=== PATIENT | male | born 1980 | race Caucasian/White ===

== ENCOUNTER 2017-06-11 17:45 | Inpatient (IN) | payer OTHER ==
[2017-06-11 17:59] VITALS: BMI 27.4
[2017-06-11] MEDS ORDERED: LIDOCAINE HCL 2% (20ML MULTI-DOSE VIAL) NR ONE (18:54)
[2017-06-11] MEDS ORDERED: LORazepam 0.5 MG TABLET ONE (18:55)
[2017-06-11] MEDS ORDERED: LORazepam 1 MG TABLET PO ONE (19:11)
[2017-06-11] MEDS ORDERED: PIPERACILLIN/TAZOB 3.375 GM/50 ML PRE-DOCKED IV ONE (19:27)
[2017-06-11] MEDS ORDERED: VANCOMYCIN 1 GRAM (PRE-DOCKED) 1,000 MG/250 ML BAG IVPB ONE (19:27)
--- NOTE | 2017-06-11 19:27 | PDOC ---
Attending Attestation - Resident Resident Name: De La PazSánchez - ED Attending Attestation I have performed the following: I have examined & evaluated the patient, The case was reviewed & discussed with the resident, I agree w/resident's findings & plan, Exceptions are as noted - HPI HPI: 06/11/17 19:26 Cellulitis and wound infection Right knee after suture repair - Physicial Exam PE: 06/11/17 19:26 Joint Effusion? Tap is dry - Medical Decision Making 06/11/17 19:26 Nely and Deepika, Admit to Hospitalist Discharge Disposition - Diagnosis Local infection of wound Cellulitis Qualifiers: Site of cellulitis of extremity: lower extremity Laterality: right - Discharge Dispostion Condition at time of disposition: Stable Admit: Yes
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
[2017-06-11] MEDS ORDERED: VANCOMYCIN 1,000 MG VIAL (RESTRICTED TO ID ONLY) ONE (20:22)
[2017-06-11] MEDS ORDERED: PIPERACILLIN/TAZOBACTAM 3.375 GM VIAL IVPB ONE (20:22)
[2017-06-11 20:31] LABS: BASOPHIL 0.3 % (0-2.0); MCH 30.9 pg (25.7-33.7); MCHC 33.9 g/dl (32.0-35.9); MEAN CELL VOLUME 91.1 fl (80-96); MEAN PLT VOLUME 8.8 fl (7.5-11.1); NEUTROPHILS 84.1 % (42.8-82.8); PLATELET COUNT 274 K/MM3 (134-434); RDW 11.3 % (11.9-15.9); WHITE BLOOD COUNT 15.6 K/mm3 (4.0-10.8)
[2017-06-11 20:42] LABS: INR 1.28 (0.82-1.09); PROTHROMBIN TIME (PATIENT) 14.3 SEC (10.2-13.0)
[2017-06-11 20:46] LABS: ALBUMIN 4.6 g/dl (3.5-5.0); ALK PHOS 51 U/L (32-92); ANION GAP 10 (8-16); BILIRUBIN,TOTAL 1.7 mg/dl (0.2-1.0); CALCIUM 9.8 mg/dl (8.4-10.2); CO2 26 mmol/L (22-28); GLUCOSE,RANDOM 110 mg/dl (74-106); SGOT/AST 20 U/L (10-42); SGPT/ALT 18 U/L (10-40); TOT PROT 8.1 g/dl (6.4-8.3)
--- NOTE | 2017-06-11 21:06 | PDOC ---
*Physical Exam - Vital Signs Last Vital Signs Temp Pulse Resp BP Pulse Ox 98.1 F 87 18 129/76 99 06/11/17 17:45 06/11/17 17:45 06/11/17 17:45 06/11/17 17:45 06/11/17 17:45 ED Treatment Course - LABORATORY CBC & Chemistry Diagram: 06/11/17 20:20 06/11/17 20:20 - ADDITIONAL ORDERS Additional order review: Laboratory Results 06/11/17 06/11/17 20:20 20:20 INR 1.28 H Sodium 136 Potassium 4.0 Chloride 100 Carbon Dioxide 26 Anion Gap 10 BUN 11 Creatinine 1.0 Creat Clearance w eGFR > 60 Random Glucose 110 H Calcium 9.8 Total Bilirubin 1.7 H AST 20 ALT 18 Alkaline Phosphatase 51 Total Protein 8.1 Albumin 4.6 06/11/17 20:20 RBC 4.59 MCV 91.1 MCHC 33.9 RDW 11.3 L MPV 8.8 Neutrophils % 84.1 H Lymphocytes % 8.2 Monocytes % 7.4 Eosinophils % 0.0 Basophils % 0.3 - Medications Given in the ED: ED Medications Discontinued Medications Generic Name Dose Route Start Last Admin Trade Name Freq PRN Reason Stop Dose Admin Lorazepam 2 mg 06/11/17 19:11 06/11/17 19:00 Ativan - PO 06/11/17 19:12 2 mg ONCE ONE Administration Oxycodone/Acetaminophen 2 combo 06/11/17 19:30 06/11/17 20:24 Percocet 5/325 - PO 06/11/17 19:31 2 combo ONCE ONE Administration Piperacillin Sod/Tazobactam Sod 3.375 gm 06/11/17 19:27 06/11/17 20:39 Zosyn 3.375gm Ivpb (Pre-Docked) IV 06/11/17 19:28 3.375 gm ONCE ONE Administration Protocol Progress Note - Progress Note Progress Note: Care of this patient received from Dr. Jennings. Labs reviewed: White blood cell count notable for marked elevation at 15,600 Remainder of laboratory evaluation notable for CRP of 13 Patient admitted to [facility] service *DC/Admit/Observation/Transfer Diagnosis at time of Disposition: Wound infection Cellulitis Qualifiers: Site of cellulitis of extremity: lower extremity Laterality: right - Discharge Dispostion Condition at time of disposition: Stable
[2017-06-11 21:23] LABS: ERYTHROCYTE SEDIMENTATION RATE 30 mm/hr (0-10)
[2017-06-11 23:15] LABS: C-REACTIVE PROTEIN 13.2 MG/DL (0.00-0.3)
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
[2017-06-12] MEDS ORDERED: PIPERACILLIN/TAZOB 3.375 GM/50 ML PRE-DOCKED IVPB ONE (04:00)
[2017-06-12 08:12] LABS: ANION GAP 8 (8-16); CALCIUM 9.2 mg/dl (8.4-10.2); CO2 25 mmol/L (22-28); CREATININE 1.1 mg/dl (0.6-1.3); GLUCOSE,RANDOM 121 mg/dl (74-106); MAGNESIUM 1.9 mg/dL (1.8-2.4)
[2017-06-12 08:29] LABS: BASOPHIL 0.2 % (0-2.0); EOSINOPHIL 0.4 % (0-4.5); MCH 30.8 pg (25.7-33.7); MEAN CELL VOLUME 90.6 fl (80-96); MEAN PLT VOLUME 9.1 fl (7.5-11.1); NEUTROPHILS 81.4 % (42.8-82.8); PLATELET COUNT 238 K/MM3 (134-434); RDW 11.4 % (11.9-15.9); WHITE BLOOD COUNT 14.4 K/mm3 (4.0-10.8)
--- NOTE | 2017-06-12 09:58 | PN ---
Progress Note (short form) - Note Progress Note: ID Consult dictated Surgical wound infection ( sutured laceration) Cellulitis R LE Possible infected prepatellar bursa Await c/s Ortho evaluation Empiric vancomycin/ zosyn
[2017-06-12] MEDS: PIPERACILLIN/TAZOB 3.375 GM 50 ML IVPB SCH ×2 (10:43→17:37)
[2017-06-12] MEDS: VANCOMYCIN 1 GRAM (PRE-DOCKED) 250 ML IVPB SCH ×2 (10:43→21:32)
--- NOTE | 2017-06-12 10:48 | PN ---
Physical Exam: SUBJECTIVE: Patient seen and examined, reports pain to the right knee denies any paresthesia to the extremity. OBJECTIVE: patient is a 36 y/o male with no significant past medical history, patient was admitted from the emergency department for cellulitis of the right knee. Vital Signs Period Temp Pulse Resp BP Sys/Rosa Pulse Ox Last 24 Hr 98.9 F-99.9 F 95-95 18-19 108-110/61-67 100-100 GENERAL: The patient is awake, alert, and fully oriented, in no acute distress. HEAD: Normal with no signs of trauma. EYES: PERRL, extraocular movements intact, sclera anicteric, conjunctiva clear. No ptosis. ENT: Ears normal, nares patent, oropharynx clear without exudates, moist mucous membranes. NECK: Trachea midline, full range of motion, supple. LUNGS: Breath sounds equal, clear to auscultation bilaterally, no wheezes, no crackles, no accessory muscle use. HEART: Regular rate and rhythm, S1, S2 without murmur, rub or gallop. ABDOMEN: Soft, nontender, nondistended, normoactive bowel sounds, no guarding, no rebound, no hepatosplenomegaly, no masses. EXTREMITIES: 2+ pulses, warm, well-perfused, no edema. RIGHT LOWER EXTREMITY: horizontal laceration, simple interrupted sutures in place surrounding erythema noted extending to distal thigh, erythema is not extending past markings, less than 3 second capillary refill. NEUROLOGICAL: Cranial nerves II through XII grossly intact. Normal speech, gait not observed. PSYCH: Normal mood, normal affect. SKIN: Warm, dry, normal turgor, no rashes or lesions noted Laboratory Results - last 24 hr CBC WBC 12.2 K/mm3 (4.0-10.8) H 06/13/17 07:30 RBC 4.46 M/mm3 (4.00-5.60) 06/13/17 07:30 Hgb 13.9 GM/dl (11.7-16.9) 06/13/17 07:30 Hct 40.7 % (35.4-49) 06/13/17 07:30 MCV 91.3 fl (80-96) 06/13/17 07:30 MCH 31.1 pg (25.7-33.7) 06/13/17 07:30 MCHC 34.0 g/dl (32.0-35.9) 06/13/17 07:30 RDW 11.5 % (11.9-15.9) L 06/13/17 07:30 Plt Count 302 K/MM3 (134-434) D 06/13/17 07:30 MPV 9.1 fl (7.5-11.1) 06/13/17 07:30 Neutrophils % 79.3 % (42.8-82.8) 06/13/17 07:30 Lymphocytes % 13.4 % (8-40) D 06/13/17 07:30 Monocytes % 6.1 % (3.8-10.2) 06/13/17 07:30 Eosinophils % 1.1 % (0-4.5) D 06/13/17 07:30 Basophils % 0.1 % (0-2.0) 06/13/17 07:30 ESR 30 mm/hr (0-10) H 06/11/17 20:20 CMP Sodium 135 mmol/L (136-145) L 06/13/17 07:30 Potassium 4.1 mmol/L (3.5-5.1) 06/13/17 07:30 Chloride 101 mmol/L (98-107) 06/13/17 07:30 Carbon Dioxide 29 mmol/L (22-28) H 06/13/17 07:30 Anion Gap 5 (8-16) L 06/13/17 07:30 BUN 15 mg/dl (7-18) D 06/13/17 07:30 Creatinine 1.1 mg/dl (0.6-1.3) 06/13/17 07:30 Creat Clearance w eGFR > 60 (>60) 06/13/17 07:30 Random Glucose 103 mg/dl (74-106) 06/13/17 07:30 Calcium 9.4 mg/dl (8.4-10.2) 06/13/17 07:30 Phosphorus 3.5 mg/dl (2.5-4.6) 06/13/17 07:30 Magnesium 2.2 mg/dL (1.8-2.4) 06/13/17 07:30 Total Bilirubin 1.4 mg/dl (0.2-1.0) H 06/13/17 07:30 AST 20 U/L (10-42) 06/13/17 07:30 ALT 25 U/L (10-40) D 06/13/17 07:30 Alkaline Phosphatase 47 U/L (32-92) 06/13/17 07:30 C-Reactive Protein 13.2 MG/DL (0.00-0.3) H 06/11/17 20:20 Total Protein 7.5 g/dl (6.4-8.3) 06/13/17 07:30 Albumin 4.0 g/dl (3.5-5.0) 06/13/17 07:30 Active Medications Generic Name Dose Route Start Last Admin Trade Name Freq PRN Reason Stop Dose Admin Vancomycin HCl 250 mls @ 166.667 mls/hr 06/12/17 10:30 06/12/17 10:43 Vancomycin (Pre-Docked) IVPB 166.667 mls/hr Q12H HARISH Administration Piperacillin Sod/Tazobactam Sod 50 mls @ 100 mls/hr 06/12/17 10:30 06/12/17 10: 43 Zosyn 3.375gm Ivpb (Pre-Docked) IVPB 100 mls/hr Q8H-IV HARISH Administration Protocol Microbiology 06/11/17 20:20 Blood - Peripheral Venous Blood Culture - Preliminary NO GROWTH OBTAINED AFTER 24 HOURS, INCUBATION TO CONTINUE FOR 4 DAYS. 06/11/17 20:20 Blood - Peripheral Venous Blood Culture - Preliminary NO GROWTH OBTAINED AFTER 24 HOURS, INCUBATION TO CONTINUE FOR 4 DAYS. ASSESSMENT/PLAN: 1)Cellulitis R knee - continue vancomycin and zosyn - pt afebrile, d, wbc trending downward - blood cultures NTD - pending ct scan of right lower extremity r/o abscess - ID consulted and following - case discussed with MAC Urban (ortho/lent) concern for minimal improvment of erythema, plan for OR tomm, if erythema has not improved. DVT PPX -lovenox FEN - regular diet as tolerated - npo after midnight Dispo: Pt currently requires inpatient management of his emergent condition. Visit type - Emergency Visit Emergency Visit: Yes ED Registration Date: 06/11/17 Care time: The patient presented to the Emergency Department on the above date and was hospitalized for further evaluation of their emergent condition. - New Patient This patient is new to me today: Yes Date on this admission: 06/12/17 - Critical Care Critical Care patient: No - Discharge Referral Referred to [facility] No
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
[2017-06-12] MEDS ORDERED: ACETAMINOPHEN 1000 MG/100 ML VIAL (NON FORMULARY) IVPB ONE (11:30)
[2017-06-12] MEDS: oxyCODONE HCL 5 MG TABLET PO PRN (12:08)
--- NOTE | 2017-06-12 12:18 | CONSULT ---
Consult - text type - Consultation Consultation Note: FULL CONSULT DICTATED IMP: CELLULITIS RIGHT KNEE/DISTAL THIGH REGION. NO EVIDENCE OF SEPTIC JOINT OR SEPTIC PREPATELLA BURSITIS PLAN: IV AB PER ID, WILL FOLLOW
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
--- NOTE | 2017-06-12 13:39 | PROC ---
Procedure Note Procedure: #20 iv placed to left hand, no induration noted, antibiotics infusing, patient denies any pain to the insertion site
[2017-06-12] MEDS ORDERED: ZOLPIDEM TARTRATE 5 MG TABLET PO PRN (13:42)
[2017-06-12] MEDS ORDERED: PT OWN MED DRAWER 7, Y5N ONE (21:06)
[2017-06-12] MEDS: MUPIROCIN 2% TOPICAL OINTMENT 22 GM TUBE TP SCH (21:19)
[2017-06-13] MEDS: PIPERACILLIN/TAZOB 3.375 GM 50 ML IVPB SCH ×3 (01:13→17:24)
--- NOTE | 2017-06-13 08:01 | PN ---
Progress Note (short form) - Note Progress Note: Ortho Pt seen and examined Selected Entries 06/13/17 02:00 Temperature 98.0 F Pulse Rate 71 Respiratory 20 Rate Blood Pressure 113/61 Laboratory Tests 06/13/17 07:30 WBC Pending Hgb Pending Hct Pending Plt Count Pending increased erythema, no drainage of pus, diffuse ttp, rom 0-90 calf soft, nt,nvi a/p will continue to monitor IV abx as per ID rom exercises wbat will follow d/w Dr. Jenkins
[2017-06-13 08:56] LABS: BASOPHIL 0.1 % (0-2.0); EOSINOPHIL 1.1 % (0-4.5); MCH 31.1 pg (25.7-33.7); MEAN CELL VOLUME 91.3 fl (80-96); MEAN PLT VOLUME 9.1 fl (7.5-11.1); NEUTROPHILS 79.3 % (42.8-82.8); PLATELET COUNT 302 K/MM3 (134-434); RDW 11.5 % (11.9-15.9); WHITE BLOOD COUNT 12.2 K/mm3 (4.0-10.8)
[2017-06-13 09:00] LABS: ALK PHOS 47 U/L (32-92); ANION GAP 5 (8-16); BILIRUBIN,TOTAL 1.4 mg/dl (0.2-1.0); CALCIUM 9.4 mg/dl (8.4-10.2); CO2 29 mmol/L (22-28); CREATININE 1.1 mg/dl (0.6-1.3); GLUCOSE,RANDOM 103 mg/dl (74-106); MAGNESIUM 2.2 mg/dL (1.8-2.4); PHOSPHOROUS 3.5 mg/dl (2.5-4.6); SGOT/AST 20 U/L (10-42); SGPT/ALT 25 U/L (10-40); TOT PROT 7.5 g/dl (6.4-8.3)
[2017-06-13] MEDS: MUPIROCIN 2% TOPICAL OINTMENT 22 GM TUBE TP SCH ×2 (09:51→21:49)
[2017-06-13] MEDS: ENOXAPARIN NA (PORCINE) 40 MG/0.4 ML DISP.SYRIN SQ SCH (09:51)
[2017-06-13] MEDS: VANCOMYCIN 1 GRAM (PRE-DOCKED) 250 ML IVPB SCH ×2 (09:52→21:48)
--- NOTE | 2017-06-13 09:54 | PN ---
Progress Note, Physician History of Present Illness: Orthopedic evaluation appreciated Reports less R LE pain Afebrile WBC improved Tolerating antibiotics - Current Medication List Current Medications: Active Medications Acetaminophen (Tylenol -) 650 mg PO Q4H PRN PRN Reason: FEVER OR PAIN Enoxaparin Sodium (Lovenox -) 40 mg SQ DAILY [facility] Vancomycin HCl (Vancomycin (Pre-Docked)) 250 mls @ 166.667 mls/hr IVPB Q12H HARISH Last Admin: 06/12/17 21:32 Dose: 166.667 mls/hr Piperacillin Sod/Tazobactam Sod (Zosyn 3.375gm Ivpb (Pre-Docked)) 50 mls @ 100 mls/hr IVPB Q8H-IV HARISH PRN Reason: Protocol Last Admin: 06/13/17 01:13 Dose: 100 mls/hr Mupirocin (Bactroban 2% Ointment -) 1 applic TP BID HARISH Last Admin: 06/12/17 21:19 Dose: 1 applic Oxycodone HCl (Roxicodone -) 5 mg PO Q6H PRN PRN Reason: PAIN Last Admin: 06/12/17 12:08 Dose: 5 mg Zolpidem Tartrate (Ambien -) 5 mg PO HS PRN PRN Reason: INSOMNIA - Objective Vital Signs: Vital Signs Temperature 98.0 F 06/13/17 02:00 Pulse Rate 71 06/13/17 02:00 Respiratory Rate 20 06/13/17 02:00 Blood Pressure 113/61 06/13/17 02:00 O2 Sat by Pulse Oximetry (%) 100 06/13/17 09:00 Constitutional: Yes: No Distress Eyes: Yes: Conjunctiva Clear Cardiovascular: Yes: Regular Rate and Rhythm, S2 Respiratory: Yes: CTA Bilaterally Gastrointestinal: Yes: Normal Bowel Sounds, Soft. No: Tenderness Extremities: Yes: Other (decreased swelling and erythema R knee/thigh No surgical wound drainage; no fluctuance) Labs: CBC, BMP 06/13/17 07:30 06/13/17 07:30 INR, PTT INR 1.28 (0.82-1.09) H 06/11/17 20:20 Assessment/Plan Surgical wound infection/ cellulitis/ lymphangitis R knee Leukocytosis- improved Await c/s Continue empiric vancomycin/ zosyn
--- NOTE | 2017-06-13 11:38 | PN ---
Physical Exam: SUBJECTIVE: Patient seen and examined, patient reports feeling well, does report ongoing pain to the right knee worsening upon movement. OBJECTIVE: patient is a 36 y/o male with no significant past medical history, patient is s/p fall 06/09/17, was admitted from the emergency department for cellulites of the right knee. Vital Signs Period Temp Pulse Resp BP Sys/Rosa Pulse Ox Last 24 Hr 98.0 F-98.9 F 71-100 16-20 105-127/54-75 99-100 GENERAL: The patient is awake, alert, and fully oriented, in no acute distress. HEAD: Normal with no signs of trauma. EYES: PERRL, extraocular movements intact, sclera anicteric, conjunctiva clear. No ptosis. ENT: Ears normal, nares patent, oropharynx clear without exudates, moist mucous membranes. NECK: Trachea midline, full range of motion, supple. LUNGS: Breath sounds equal, clear to auscultation bilaterally, no wheezes, no crackles, no accessory muscle use. HEART: Regular rate and rhythm, S1, S2 without murmur, rub or gallop. ABDOMEN: Soft, nontender, nondistended, normoactive bowel sounds, no guarding, no rebound, no hepatosplenomegaly, no masses. EXTREMITIES: 2+ pulses, warm, well-perfused, no edema. RIGHT LOWER EXTREMITY: horizontal laceration to the anterior knee, simple interrupted sutures in place surrounding erythema noted extending to distal thigh, erythema is not extending past markings, less than 3 second capillary refill. NEUROLOGICAL: Cranial nerves II through XII grossly intact. Normal speech, gait not observed. PSYCH: Normal mood, normal affect. SKIN: Warm, dry, normal turgor, no rashes or lesions noted Laboratory Results - last 24 hr 06/13/17 06/13/17 07:30 07:30 WBC 12.2 H RBC 4.46 Hgb 13.9 Hct 40.7 MCV 91.3 MCH 31.1 MCHC 34.0 RDW 11.5 L Plt Count 302 D MPV 9.1 Neutrophils % 79.3 Lymphocytes % 13.4 D Monocytes % 6.1 Eosinophils % 1.1 D Basophils % 0.1 Sodium 135 L Potassium 4.1 Chloride 101 Carbon Dioxide 29 H Anion Gap 5 L BUN 15 D Creatinine 1.1 Creat Clearance w eGFR > 60 Random Glucose 103 Calcium 9.4 Phosphorus 3.5 Magnesium 2.2 Total Bilirubin 1.4 H AST 20 ALT 25 D Alkaline Phosphatase 47 Total Protein 7.5 Albumin 4.0 Active Medications Generic Name Dose Route Start Last Admin Trade Name Freq PRN Reason Stop Dose Admin Acetaminophen 650 mg 06/12/17 10:51 Tylenol - PO Q4H PRN FEVER OR PAIN Enoxaparin Sodium 40 mg 06/13/17 10:00 06/13/17 09:51 Lovenox - SQ 40 mg DAILY HARISH Administration Vancomycin HCl 250 mls @ 166.667 mls/hr 06/12/17 10:30 06/13/17 09:52 Vancomycin (Pre-Docked) IVPB 166.667 mls/hr Q12H HARISH Administration Piperacillin Sod/Tazobactam Sod 50 mls @ 100 mls/hr 06/12/17 10:30 06/13/17 09: 52 Zosyn 3.375gm Ivpb (Pre-Docked) IVPB 100 mls/hr Q8H-IV HARISH Administration Protocol Mupirocin 1 applic 06/12/17 22:00 06/13/17 09:51 Bactroban 2% Ointment - TP 1 applic BID HARISH Administration Oxycodone HCl 5 mg 06/12/17 10:50 06/12/17 12:08 Roxicodone - PO 5 mg Q6H PRN Administration PAIN Zolpidem Tartrate 5 mg 06/12/17 13:42 Ambien - PO HS PRN INSOMNIA Microbiology 06/11/17 20:20 Blood - Peripheral Venous Blood Culture - Preliminary NO GROWTH OBTAINED AFTER 24 HOURS, INCUBATION TO CONTINUE FOR 4 DAYS. 06/11/17 20:20 Blood - Peripheral Venous Blood Culture - Preliminary NO GROWTH OBTAINED AFTER 24 HOURS, INCUBATION TO CONTINUE FOR 4 DAYS. ASSESSMENT/PLAN: Visit type - Emergency Visit Emergency Visit: Yes ED Registration Date: 06/11/17 Care time: The patient presented to the Emergency Department on the above date and was hospitalized for further evaluation of their emergent condition. - New Patient This patient is new to me today: No - Critical Care Critical Care patient: No - Discharge Referral Referred to [facility] Med P.C.: No
[2017-06-13] MEDS: ACETAMINOPHEN 325 MG TABLET (FP) PO PRN (21:16)
[2017-06-13] MEDS: oxyCODONE HCL 5 MG TABLET PO PRN (21:16)
[2017-06-13] MEDS ORDERED: PT OWN MED DRAWER 7, Y5N ONE (21:31)
[2017-06-14] MEDS: PIPERACILLIN/TAZOB 3.375 GM 50 ML IVPB SCH ×2 (01:29→09:34)
[2017-06-14 07:53] LABS: BASOPHIL 0.1 % (0-2.0); EOSINOPHIL 2.1 % (0-4.5); MCH 30.7 pg (25.7-33.7); MCHC 33.8 g/dl (32.0-35.9); MEAN CELL VOLUME 90.8 fl (80-96); MEAN PLT VOLUME 8.9 fl (7.5-11.1); NEUTROPHILS 78.5 % (42.8-82.8); PLATELET COUNT 300 K/MM3 (134-434); RDW 11.6 % (11.9-15.9); WHITE BLOOD COUNT 11.1 K/mm3 (4.0-10.8)
--- NOTE | 2017-06-14 08:11 | PN ---
Progress Note (short form) - Note Progress Note: Ortho Pt seen and examined- improving Selected Entries 06/14/17 02:00 Temperature 99.0 F Pulse Rate 69 Respiratory 18 Rate Blood Pressure 137/72 Laboratory Tests 06/14/17 07:30 WBC 11.1 H Hgb 13.0 Hct 38.4 Plt Count 300 decreases erythema and swelling, minimal drainage, decr ttp, rom 0-90 calf soft, nt,nvi a/p will continue to monitor IV abx as per ID rom exercises wbat npo after midnight in case needs OR d/w Dr. Jenkins
[2017-06-14 08:15] LABS: ANION GAP 9 (8-16); CALCIUM 9.5 mg/dl (8.4-10.2); CO2 28 mmol/L (22-28); CREATININE 1.1 mg/dl (0.6-1.3); GLUCOSE,RANDOM 111 mg/dl (74-106); MAGNESIUM 2.3 mg/dL (1.8-2.4); PHOSPHOROUS 4.2 mg/dl (2.5-4.6)
--- NOTE | 2017-06-14 08:20 | PN ---
Physical Exam: SUBJECTIVE: Patient seen and examined, reports feeling better, does report an improvement in pain to the right knee, denies any tactile fever. OBJECTIVE: patient is a 36 y/o male with no significant past medical history , patient is s/p fall 06/09/17, was admitted from the emergency department for cellulites of the right knee. Vital Signs Period Temp Pulse Resp BP Sys/Rosa Pulse Ox Last 24 Hr 99.0 F-99.8 F 69-85 16-18 119-137/54-72 100-100 GENERAL: The patient is awake, alert, and fully oriented, in no acute distress. HEAD: Normal with no signs of trauma. EYES: PERRL, extraocular movements intact, sclera anicteric, conjunctiva clear. No ptosis. ENT: Ears normal, nares patent, oropharynx clear without exudates, moist mucous membranes. NECK: Trachea midline, full range of motion, supple. LUNGS: Breath sounds equal, clear to auscultation bilaterally, no wheezes, no crackles, no accessory muscle use. HEART: Regular rate and rhythm, S1, S2 without murmur, rub or gallop. ABDOMEN: Soft, nontender, nondistended, normoactive bowel sounds, no guarding, no rebound, no hepatosplenomegaly, no masses. EXTREMITIES: 2+ pulses, warm, well-perfused, no edema. RIGHT LOWER EXTREMITY: horizontal laceration to the anterior knee, simple interrupted sutures in place, well approximated, erythema is much improved, is not extending past markings, less than 3 second capillary refill. NEUROLOGICAL: Cranial nerves II through XII grossly intact. Normal speech, gait not observed. PSYCH: Normal mood, normal affect. SKIN: Warm, dry, normal turgor, no rashes or lesions noted Laboratory Results - last 24 hr 06/13/17 06/13/17 06/13/17 07:30 07:30 22:00 WBC 12.2 H RBC 4.46 Hgb 13.9 Hct 40.7 MCV 91.3 MCH 31.1 MCHC 34.0 RDW 11.5 L Plt Count 302 D MPV 9.1 Neutrophils % 79.3 Lymphocytes % 13.4 D Monocytes % 6.1 Eosinophils % 1.1 D Basophils % 0.1 Sodium 135 L Potassium 4.1 Chloride 101 Carbon Dioxide 29 H Anion Gap 5 L BUN 15 D Creatinine 1.1 Creat Clearance w eGFR > 60 Random Glucose 103 Calcium 9.4 Phosphorus 3.5 Magnesium 2.2 Total Bilirubin 1.4 H AST 20 ALT 25 D Alkaline Phosphatase 47 Total Protein 7.5 Albumin 4.0 Vancomycin Pre-Dose 5.402 06/14/17 07:30 WBC 11.1 H RBC 4.23 Hgb 13.0 Hct 38.4 MCV 90.8 MCH 30.7 MCHC 33.8 RDW 11.6 L Plt Count 300 MPV 8.9 Neutrophils % 78.5 Lymphocytes % 12.2 Monocytes % 7.1 Eosinophils % 2.1 D Basophils % 0.1 Sodium Potassium Chloride Carbon Dioxide Anion Gap BUN Creatinine Creat Clearance w eGFR Random Glucose Calcium Phosphorus Magnesium Total Bilirubin AST ALT Alkaline Phosphatase Total Protein Albumin Vancomycin Pre-Dose Active Medications Generic Name Dose Route Start Last Admin Trade Name Freq PRN Reason Stop Dose Admin Acetaminophen 650 mg 06/12/17 10:51 06/13/17 21:16 Tylenol - PO 650 mg Q4H PRN Administration FEVER OR PAIN Enoxaparin Sodium 40 mg 06/13/17 10:00 06/13/17 09:51 Lovenox - SQ 40 mg DAILY HARISH Administration Vancomycin HCl 250 mls @ 166.667 mls/hr 06/12/17 10:30 06/13/17 21:48 Vancomycin (Pre-Docked) IVPB 166.667 mls/hr Q12H HARISH Administration Piperacillin Sod/Tazobactam Sod 50 mls @ 100 mls/hr 06/12/17 10:30 06/14/17 01: 29 Zosyn 3.375gm Ivpb (Pre-Docked) IVPB 100 mls/hr Q8H-IV HARISH Administration Protocol Mupirocin 1 applic 06/12/17 22:00 06/13/17 21:49 Bactroban 2% Ointment - TP Not Given BID HARISH Oxycodone HCl 5 mg 06/12/17 10:50 06/13/17 21:16 Roxicodone - PO 5 mg Q6H PRN Administration PAIN Zolpidem Tartrate 5 mg 06/12/17 13:42 Ambien - PO HS PRN INSOMNIA Microbiology 06/11/17 20:20 Blood - Peripheral Venous Blood Culture - Preliminary NO GROWTH OBTAINED AFTER 48 HOURS, INCUBATION TO CONTINUE FOR 3 DAYS. 06/11/17 20:20 Blood - Peripheral Venous Blood Culture - Preliminary NO GROWTH OBTAINED AFTER 48 HOURS, INCUBATION TO CONTINUE FOR 3 DAYS. ASSESSMENT/PLAN: 1)Cellulitis R knee - continue vancomycin, vanc trough WNL and zosyn - pt afebrile, wbc is trending downward - ct scan of right lower extremity cellulitis, no abscess with a tiny drop of air as per radiology - ID consulted and following - ortho (lent/Wilmar) consulted and following DVT PPX -lovenox FEN - regular diet as tolerated - npo after midnight in case pt needs any surgical intervention Dispo: Pt currently requires inpatient management of his emergent condition. Visit type - Emergency Visit Emergency Visit: Yes ED Registration Date: 06/11/17 Care time: The patient presented to the Emergency Department on the above date and was hospitalized for further evaluation of their emergent condition. - New Patient This patient is new to me today: No - Critical Care Critical Care patient: No - Discharge Referral Referred to [facility] Med P.C.: No
[2017-06-14] MEDS: ACETAMINOPHEN 325 MG TABLET (FP) PO PRN (09:34)
[2017-06-14] MEDS: VANCOMYCIN 1 GRAM (PRE-DOCKED) 250 ML IVPB SCH ×2 (09:34→21:41)
[2017-06-14] MEDS: oxyCODONE HCL 5 MG TABLET PO PRN ×2 (09:35→21:40)
[2017-06-14] MEDS: MUPIROCIN 2% TOPICAL OINTMENT 22 GM TUBE TP SCH ×2 (09:36→21:39)
--- NOTE | 2017-06-14 11:30 | PN ---
Progress Note, Physician History of Present Illness: Reports less leg pain and swelling No c/o fever/ chills Tolerating antibiotics - Current Medication List Current Medications: Active Medications Acetaminophen (Tylenol -) 650 mg PO Q4H PRN PRN Reason: FEVER OR PAIN Last Admin: 06/14/17 09:34 Dose: 650 mg Enoxaparin Sodium (Lovenox -) 40 mg SQ DAILY [facility] Last Admin: 06/13/17 09:51 Dose: 40 mg Vancomycin HCl (Vancomycin (Pre-Docked)) 250 mls @ 166.667 mls/hr IVPB Q12H HARISH Last Admin: 06/14/17 09:34 Dose: 166.667 mls/hr Piperacillin Sod/Tazobactam Sod (Zosyn 3.375gm Ivpb (Pre-Docked)) 50 mls @ 100 mls/hr IVPB Q8H-IV HARISH PRN Reason: Protocol Last Admin: 06/14/17 09:34 Dose: 100 mls/hr Mupirocin (Bactroban 2% Ointment -) 1 applic TP BID [facility] Last Admin: 06/14/17 09:36 Dose: 1 applic Oxycodone HCl (Roxicodone -) 5 mg PO Q6H PRN PRN Reason: PAIN Last Admin: 06/14/17 09:35 Dose: 5 mg Zolpidem Tartrate (Ambien -) 5 mg PO HS PRN PRN Reason: INSOMNIA - Objective Vital Signs: Vital Signs Temperature 99.0 F 06/14/17 02:00 Pulse Rate 69 06/14/17 02:00 Respiratory Rate 18 06/14/17 02:00 Blood Pressure 137/72 06/14/17 02:00 O2 Sat by Pulse Oximetry (%) 100 06/14/17 02:10 Constitutional: Yes: No Distress Eyes: Yes: Conjunctiva Clear Cardiovascular: Yes: Regular Rate and Rhythm, S1, S2 Respiratory: Yes: CTA Bilaterally Gastrointestinal: Yes: Normal Bowel Sounds, Soft. No: Tenderness Extremities: Yes: Other (decreased R LE erythema/ swelling no fluctuance or expressibel wound drainage) Labs: CBC, BMP 06/14/17 07:30 06/14/17 07:30 INR, PTT INR 1.28 (0.82-1.09) H 06/11/17 20:20 Assessment/Plan Surgical wound infection/ cellulitis/ lymphangitis R knee improved Leukocytosis- improved Continue empiric vancomycin/ zosyn Local wound care
[2017-06-15] MEDS: PIPERACILLIN/TAZOB 3.375 GM 50 ML IVPB SCH ×2 (01:20→10:10)
[2017-06-15 05:48] VITALS: PULSE 54
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
--- NOTE | 2017-06-15 09:14 | PN ---
Progress Note, Physician History of Present Illness: Reports less R LE pain No fever/ chills Afebrile WBC improved 11K - Current Medication List Current Medications: Active Medications Acetaminophen (Tylenol -) 650 mg PO Q4H PRN PRN Reason: FEVER OR PAIN Last Admin: 06/14/17 09:34 Dose: 650 mg Enoxaparin Sodium (Lovenox -) 40 mg SQ DAILY [facility] Last Admin: 06/13/17 09:51 Dose: 40 mg Vancomycin HCl (Vancomycin (Pre-Docked)) 250 mls @ 166.667 mls/hr IVPB Q12H HARISH Last Admin: 06/14/17 21:41 Dose: 166.667 mls/hr Piperacillin Sod/Tazobactam Sod (Zosyn 3.375gm Ivpb (Pre-Docked)) 50 mls @ 100 mls/hr IVPB Q8H-IV HARISH PRN Reason: Protocol Last Admin: 06/15/17 01:20 Dose: 100 mls/hr Mupirocin (Bactroban 2% Ointment -) 1 applic TP BID [facility] Last Admin: 06/14/17 21:39 Dose: 1 applic Oxycodone HCl (Roxicodone -) 5 mg PO Q6H PRN PRN Reason: PAIN Last Admin: 06/14/17 21:40 Dose: 5 mg Zolpidem Tartrate (Ambien -) 5 mg PO HS PRN PRN Reason: INSOMNIA - Objective Vital Signs: Vital Signs Temperature 97.7 F 06/15/17 05:46 Pulse Rate 54 L 06/15/17 05:46 Respiratory Rate 18 06/15/17 09:00 Blood Pressure 108/66 06/15/17 05:46 O2 Sat by Pulse Oximetry (%) 96 06/15/17 09:00 Constitutional: Yes: No Distress Eyes: Yes: Conjunctiva Clear Cardiovascular: Yes: Regular Rate and Rhythm, S1, S2 Respiratory: Yes: CTA Bilaterally Gastrointestinal: Yes: Normal Bowel Sounds, Soft. No: Tenderness Extremities: Yes: Other (R LE swelling/ erythema nearly all resolved + residual area of erythema, patella No wound drainage no fluctuance) Labs: INR, PTT INR 1.28 (0.82-1.09) H 06/11/17 20:20 Assessment/Plan Surgical wound infection/ cellulitis/ lymphangitis R knee improved Leukocytosis- improved May substitute Bactrim DS po bid x 10d Local wound care
[2017-06-15] MEDS ORDERED: PT OWN MED DRAWER 7, Y5N ONE (10:00)
[2017-06-15] MEDS: VANCOMYCIN 1 GRAM (PRE-DOCKED) 250 ML IVPB SCH (10:08)
[2017-06-15] MEDS: ENOXAPARIN NA (PORCINE) 40 MG/0.4 ML DISP.SYRIN SQ SCH (10:16)
[2017-06-15] MEDS: MUPIROCIN 2% TOPICAL OINTMENT 22 GM TUBE TP SCH (10:17)
[2017-06-15] MEDS: ACETAMINOPHEN 325 MG TABLET (FP) PO PRN (10:32)
[2017-06-15] MEDS: oxyCODONE HCL 5 MG TABLET PO PRN (10:33)
--- NOTE | 2017-06-15 11:35 | PN ---
Progress Note (short form) - Note Progress Note: Ortho Pt seen and examined- improving Selected Entries 06/15/17 05:46 Temperature 97.7 F Pulse Rate 54 L Respiratory 18 Rate Blood Pressure 108/66 Laboratory Tests 06/14/17 07:30 WBC 11.1 H Hgb 13.0 Hct 38.4 Plt Count 300 decreases erythema and swelling, no drainage, sutures intact, decr ttp, rom 0-90 calf soft, nt,nvi a/p Bactrim as per ID rom exercises wbat d/c home today f/u in 7-10 days d/w Dr. Jenkins
[2017-06-15 13:33] VITALS: BP 120/66; TEMP 98.8
[2017-06-15 14:15] LABS: BASOPHIL 0.6 % (0-2.0); EOSINOPHIL 3.3 % (0-4.5); MCHC 34.3 g/dl (32.0-35.9); MEAN CELL VOLUME 90.5 fl (80-96); NEUTROPHILS 77.2 % (42.8-82.8); PLATELET COUNT 344 K/MM3 (134-434); RDW 11.4 % (11.9-15.9); WHITE BLOOD COUNT 10.6 K/mm3 (4.0-10.8)
[2017-06-15 14:53] LABS: ANION GAP 7 (8-16); CALCIUM 9.4 mg/dl (8.4-10.2); CO2 27 mmol/L (22-28); GLUCOSE,RANDOM 102 mg/dl (74-106)
== END 2017-06-15 13:55 | disposition home or self-care (01) | DRG 863 ==
LOC: FER 17:45 → FM/S 21:44
PROVIDERS: ADMIT Internal Medicine; ATTEND Nurse Practitioner Family
PROC: 0S9C3ZZ Drainage of Right Knee Joint, Percutaneous Approach (ICD-10-PCS; principal; 2017-06-11)
DX: T81.4XXA Infection following a procedure, initial encounter (principal); L03.115 Cellulitis of right lower limb; B99.8 Other infectious disease; Y83.8 Other surgical procedures as the cause of abnormal reaction of the patient, or of later complication, without mention of misadventure at the time of the procedure; Y92.89 Other specified places as the place of occurrence of the external cause; D72.828 Other elevated white blood cell count
CPT/HCPCS: 36415; 73562-TC-RT; 73700-TC-RT; 80048; 80053; 83735; 84100; 85025; 85610; 85651; 86140; 87040; 99283-25; G0480

== ENCOUNTER 2017-06-28 17:11 | Emergency (ER) | payer OTHER ==
[2017-06-28 17:22] VITALS: BP 128/89; PULSE 89; TEMP 98.5; BMI 27.4
[2017-06-28] MEDS ORDERED: IBUPROFEN 400 MG TABLET (FP) PO ONE ×3 (17:50→17:56)
[2017-06-28] MEDS ORDERED: hydrOXYzine PAMOATE 25 MG CAPSULE (FP) PO ONE ×2 (17:50→17:53)
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
== END 2017-06-28 18:09 | disposition home or self-care (01) ==
LOC: FER 17:11
DX: S13.4XXA Sprain of ligaments of cervical spine, initial encounter (principal); V49.9XXA Car occupant (driver) (passenger) injured in unspecified traffic accident, initial encounter; Y93.89 Activity, other specified; Y92.410 Unspecified street and highway as the place of occurrence of the external cause
CPT/HCPCS: 99282-25

== ENCOUNTER 2019-09-05 15:28 | Emergency (ER) | payer OTHER ==
[2019-09-05 15:38] VITALS: BP 132/94; PULSE 89; TEMP 98.4; BMI 26.6
[2019-09-05] MEDS ORDERED: NAPROXEN 500 MG TABLET (FP) PO ONE (16:02)
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
[2019-09-05] MEDS ORDERED: NAPROXEN 500 MG TABLET (FP) ONE (16:04)
== END 2019-09-05 16:10 | disposition home or self-care (01) ==
LOC: FER 15:28
DX: M54.5 Low back pain (principal); M54.9 Dorsalgia, unspecified; M79.661 Pain in right lower leg; M79.662 Pain in left lower leg; V13.4XXA Pedal cycle driver injured in collision with car, pick-up truck or van in traffic accident, initial encounter; Y93.55 Activity, bike riding; Y92.488 Other paved roadways as the place of occurrence of the external cause
CPT/HCPCS: 99282-25

== ENCOUNTER 2023-05-23 08:38 | Day surgery (SDC) | payer BC ==
[2023-05-22 12:23] VITALS: BMI 27.4
[2023-05-23 09:54] VITALS: TEMP 98
[2023-05-23 10:16] VITALS: RESP 18
[2023-05-23 10:17] VITALS: BP 128/77; PULSE 82
== END 2023-05-23 10:27 | disposition home or self-care (01) ==
LOC: FASU-ENDO 08:38
PROVIDERS: ATTEND Internal Medicine Gastroenterology
PROC: 0DJD8ZZ Inspection of Lower Intestinal Tract, Via Natural or Artificial Opening Endoscopic (ICD-10-PCS; principal; 2023-05-23 09:41)
DX: R93.3 Abnormal findings on diagnostic imaging of other parts of digestive tract (principal)

== ENCOUNTER 2024-04-28 08:50 | Emergency (ER) | payer BC ==
[2024-04-28 08:57] VITALS: BP 142/99; PULSE 77; RESP 16; TEMP 99.3; BMI 26.6
[2024-04-28] MEDS ORDERED: ACETAMINOPHEN 325 MG TABLET (FP) ONE (09:21)
[2024-04-28] MEDS: ACETAMINOPHEN 325 MG TABLET (FP) PO ONE (09:50)
[2024-04-28 09:58] LABS: HEMATOCRIT 44.5 % (35.4-49); HEMOGLOBIN 14.7 G/dL (11.7-16.9); MCH 30.6 pg (25.7-33.7); MCHC 33.1 g/dl (32.0-35.9); MEAN CELL VOLUME 92.5 fl (80-96); MEAN PLT VOLUME 8.4 fl (7.5-11.1); RBC 4.81 10^6/uL (4.00-5.60); RDW 13.2 % (11.9-15.9)
[2024-04-28 10:03] LABS: ALBUMIN 4.8 g/dl (3.4-5.0); CALCIUM 10.2 mg/dl (8.5-10.1); POTASSIUM 4.5 mmol/L (3.5-5.1); TOT PROT 7.5 g/dl (6.4-8.2)
== END 2024-04-28 11:18 | disposition home or self-care (01) ==
LOC: FER 08:50
DX: R10.32 Left lower quadrant pain (principal)
CPT/HCPCS: 36415; 74177-TC; 80053; 81003; 83690; 85027; 87086; 99285-25; Q9967